=== PATIENT | male | born 1970 | race American Indian/Alaskan Native ===

== ENCOUNTER 2020-09-12 00:32 | Emergency (ER) | payer SELFPAY ==
[2020-09-12 02:00] LABS: Basophils % (Auto) 0.9 % (0.0-1.8); Eosinophils # (Auto) 0.1 K/mm3 (0.0-0.4); Eosinophils % (Auto) 1.5 % (0.0-4.3); Hematocrit 36.8 % (35.5-45.6); Hemoglobin 12.2 gm/dl (11.8-15.2); Lymphocytes # (Auto) 1.6 K/mm3 (1.2-5.4); Lymphocytes % (Auto) 40.8 % (13.4-35.0); Mean Corpuscular HGB Conc 33 % (32-34); Mean Corpuscular Volume 97 fl (84-94); Monocytes # (Auto) 0.5 K/mm3 (0.0-0.8); Monocytes % (Auto) 12.3 % (0.0-7.3); Platelet Count 211 K/mm3 (140-440); Red Blood Count 3.81 M/mm3 (3.65-5.03); Red Cell Distribution Width 15.3 % (13.2-15.2)
[2020-09-12 02:23] LABS: Blood Urea Nitrogen 5 mg/dL (9-20); Calcium 8.9 mg/dL (8.4-10.2); Hemolysis Index 5
[2020-09-12 02:34] LABS: BUN/Creatinine Ratio 10
== END 2020-09-12 01:35 | disposition left against medical advice (07) ==
LOC: ED 00:32
DX: Z53.21 Procedure and treatment not carried out due to patient leaving prior to being seen by health care provider (principal)
CPT/HCPCS: 36415; 80048; 80320; 85025; G0480

== ENCOUNTER 2020-09-12 13:17 | Emergency (ER) | payer SELFPAY ==
[2020-09-12] MEDS ORDERED: HALOPERIDOL LACTATE 5 MG/1 ML INJ IM PRN (13:54)
[2020-09-12] MEDS ORDERED: LORazepam 2 MG/ML VIAL IM PRN (13:54)
[2020-09-12] MEDS ORDERED: LORazepam 2 MG/ML VIAL IV PRN (13:55)
[2020-09-12] MEDS ORDERED: LORazepam 2 MG TAB PO PRN ×2 (13:55)
[2020-09-12] MEDS ORDERED: chlordiazePOXIDE 25 MG CAP PO PRN (13:55)
[2020-09-12] MEDS ORDERED: DEXTROSE 50% IN WATER (25GM) 50 ML VIAL IV PRN (13:56)
--- NOTE | 2020-09-12 14:01 | Emergency Department Report ---
ED Alcohol HPI - General Chief Complaint: Alcohol Stated Complaint: ETOH Time Seen by Provider: 09/12/20 13:36 Source: patient, EMS (Verbal report received from emergency medical services. EMS documentation not available at time of chart dictation ), RN notes reviewed, old records reviewed Mode of arrival: Stretcher Limitations: Altered Mental Status - History of Present Illness Initial Comments: The patient was evaluated in the emergency department for symptoms described in the history of present illness. He/she was evaluated in the context of the global COVID-19 pandemic, which necessitated consideration that the patient might be at risk for infection with the virus that causes COVID-19. Institutional protocols and algorithms that pertain to the evaluation of patients at risk for COVID-19 are in a state of rapid change based on informatio n released by regulatory bodies including the CDC and federal and state organizations. These policies and algorithms were followed during the patient's care in the emergency department. Please note that these policies, procedures and recommendations changed on a rapid basis. Patient is a 50-year-old gentleman. He is not known to myself previously. He is brought to the hospital today by emergency medical services with a reported complaint of alcohol intoxication. History obtained mostly from EMS. Patient was seen in this hospital earlier on today, had laboratory studies drawn which demonstrated alcohol intoxication, however, no medical record was written that I could review. I am not certain if the patient was discharged or eloped. Apparently, as per EMS, patient was [place] in the bathroom [place] a local [place], with a still 1 bottle of wine. There is concern that the patient may have been shooting up recreationally. The patient himself is pleasant and intoxicated. He denies physical pain. He is not sure if he fell. He is not homicidal or suicidal. He is not accompanied by friends or family at this time for additional information/collateral information. MD Complaint: alcohol intoxication Last Drink: unknown Chronic Alcohol Use: Yes Previous Visits for Alcohol Intoxication?: Yes - Related Data Previous Rx's Medication Instructions Recorded Last Taken Type Multivitamin with Folic Acid [[facility] 400 mcg PO QDAY #30 tablet 09/12/20 Unknown Rx One Daily Essential Tablet] chlordiazePOXIDE [Librium] 25 mg PO Q6H PRN #25 capsule 09/12/20 Unknown Rx Allergies Allergy/AdvReac Type Severity Reaction Status Date / Time No Known Allergies Allergy Unverified 10/26/20 01:22 ED Review of Systems ROS: Stated complaint: ETOH Other details as noted in HPI Comment: Unobtainable due to pts medical conditions ED Past Medical Hx - Past Medical History Previous Medical History?: No - Surgical History Past Surgical History?: No - Social History Smoking Status: Current Some Day Smoker Substance Use Type: Alcohol, Marijuana - Medications Home Medications: Home Medications Medication Instructions Recorded Confirmed Last Taken Type Multivitamin with Folic Acid [[facility] 400 mcg PO QDAY #30 tablet 09/12/20 Unknown Rx One Daily Essential Tablet] chlordiazePOXIDE [Librium] 25 mg PO Q6H PRN #25 capsule 09/12/20 Unknown Rx ED Physical Exam - General Limitations: Other (Florid alcohol intoxication) General appearance: in no apparent distress, appears intoxicated - Head Head exam: Present: atraumatic, normocephalic - Eye Eye exam: Present: normal appearance, EOMI. Absent: nystagmus - ENT ENT exam: Present: mucous membranes dry, normal external ear exam, other (Tongue fasciculations not appreciated) - Neck Neck exam: Present: normal inspection, full ROM. Absent: tenderness, meningismus - Respiratory Respiratory exam: Present: normal lung sounds bilaterally. Absent: respiratory distress, wheezes, rales, rhonchi, stridor, decreased breath sounds - Cardiovascular Cardiovascular Exam: Present: regular rate, normal rhythm, normal heart sounds. Absent: bradycardia, tachycardia, irregular rhythm, systolic murmur, diastolic murmur, rubs, gallop - GI/Abdominal GI/Abdominal exam: Present: soft. Absent: distended, tenderness, guarding, rebound, rigid, pulsatile mass - Rectal Rectal exam: Present: deferred - exam: Present: normal inspection, other (Chaperoned by Yue Thomas) External exam: Present: normal external exam - Extremities Exam Extremities exam: Present: normal inspection (Left upper extremity ecchymosis appreciated. There is no tenderness.), full ROM, other (2+ pulses noted in the bilateral upper and lower extremities. There is no palpable cord. negative Homans sign. Muscular compartments are soft. The pelvis is stable.). Absent: tenderness - Back Exam Back exam: Present: normal inspection, full ROM. Absent: tenderness, CVA tenderness (R), CVA tenderness (L), paraspinal tenderness, vertebral tenderness - Neurological Exam Neurological exam: Present: altered, other (No facial droop. Tongue midline. Extraocular movements intact bilaterally. Facial sensation intact to light touch in V1, V2, V3 distribution bilaterally. 5 and a 5 strength in 4 extremit ies. Sensation intact to light touch in 4 extremities.) - Psychiatric Psychiatric exam: Absent: homicidal ideation, suicidal ideation - Skin Skin exam: Present: warm, ecchymosis ED Course Vital Signs 09/12/20 09/12/20 09/12/20 13:39 13:49 14:00 Temperature 98.6 F Pulse Rate 92 H 84 Respiratory 18 9 L 9 L Rate Blood Pressure 132/86 134/94 Blood Pressure [Left] O2 Sat by Pulse 97 Oximetry 09/12/20 09/12/20 09/12/20 14:46 14:49 15:00 Temperature Pulse Rate 82 82 Respiratory 10 L 18 9 L Rate Blood Pressure 113/76 113/76 Blood Pressure [Left] O2 Sat by Pulse 92 94 Oximetry 09/12/20 09/12/20 09/12/20 15:16 15:30 15:46 Temperature Pulse Rate 80 88 82 Respiratory 9 L 10 L 9 L Rate Blood Pressure 106/75 106/75 Blood Pressure [Left] O2 Sat by Pulse 97 89 97 Oximetry 09/12/20 09/12/20 09/12/20 16:00 16:16 16:30 Temperature Pulse Rate 80 90 81 Respiratory 11 L 10 L 14 Rate Blood Pressure 113/83 113/83 115/74 Blood Pressure [Left] O2 Sat by Pulse 98 82 L 100 Oximetry 09/12/20 19:20 Temperature 98.2 F Pulse Rate 80 Respiratory 16 Rate Blood Pressure Blood Pressure 123/78 [Left] O2 Sat by Pulse 99 Oximetry - Reevaluation(s) Reevaluation #1: 09/12/20 14:02 Differential diagnosis, including but not limited to: Alcohol intoxication, intracranial injury, cervical spine injury, electrolyte derangement Assessment and plan: 50-year-old gentleman who is intoxicated. He is afebrile, with reassuring vital signs, speaking in complete sentences, and moving 4 extremities. It is unclear if the patient fell and/or hit his head. The patient has not made any comments about homicidality or suicidality. Place patient on hold status, obtain appropriate laboratory studies, had CBC drawn within the past 24 hours, do not see need for repeat CBC. Obtain a CT scan of the brain, cervical spine. As needed medications ordered. EKG ordered. Anticipate observation in this emergency room pending clinical sobriety. Reevaluation #2: 09/12/20 14:55 CT scan of the brain is negative for acute findings. Reevaluation #3: 09/12/20 15:29 CT scan of the brain and cervical spine negative for acute findings. Patient resting comfortably at this time, and in no acute distress. Laboratory studies pending. Care will be transferred to the oncoming ER physician, Dr. Kayla Crawford to observe patient in the ER until clinically sober, and discharge once clinically sober. ED Medical Decision Making - Lab Data Result diagrams: 09/12/20 14:27 Vital Signs 09/12/20 13:39 Temperature 98.6 F Pulse Rate 92 H Respiratory 18 Rate Blood Pressure 132/86 O2 Sat by Pulse 97 Oximetry - EKG Data -: EKG Interpreted by Vt EKG shows normal: sinus rhythm Rate: normal - EKG Data When compared to previous EKG there are: previous EKG unavailable 09/12/20 14:16 Sinus rhythm, 93 bpm, normal axis, QTC prolonged, 466 ms, left ventricular hypertrophy, minimal motion artifact. No prior for comparison. Not consistent with a STEMI. - Radiology Data Radiology results: pending Critical care attestation.: If time is entered above; I have spent that time in minutes in the direct care of this critically ill patient, excluding procedure time. ED Disposition Clinical Impression: Alcohol intoxication Disposition: DC-01 TO HOME OR SELFCARE Is pt being admited?: No Does the pt Need Aspirin: No Condition: Good Instructions: Alcohol Intoxication (ED), Abuse of Alcohol (ED) Additional Instructions: Minimize/avoid consumption of alcohol consumption. Take the multivitamins on a daily basis. Take the Librium medication as needed for sensation of alcohol withdrawal, tremors, shaking. Follow-up with your primary care doctor, psychiatrist, therapists or detox center within the next 5 to [address] or operate car/motor vehicles until cleared to do so by a primary care doctor. Avoid consumption of tobacco, smoke products. Please return to the emergency room right away with new pain, worsened pain, tameka ration of pain, projectile vomiting, change in mental status, confusion, inability to tolerate liquid feeds, new, worsened or different symptoms not present on the initial emergency room evaluation. Prescriptions: Multivitamin with Folic Acid [[facility]vs One Daily Essential Tablet] 400 mcg PO QDAY #30 tablet chlordiazePOXIDE [Librium] 25 mg PO Q6H PRN #25 capsule PRN Reason: Alcohol Withdrawal Referrals: [facility] [Provider Group] - 3-5 Days [facility] [Provider Group] - 3-5 Days
--- NOTE | 2020-09-12 14:52 | Cat Scan Report ---
CT HEAD WITHOUT CONTRAST INDICATION / CLINICAL INFORMATION: etoh abuse, intox, closed head injujry. TECHNIQUE: Axial imaging performed from the skull apex through the skull base without the use of cont rast. Sagittal and coronal reformatted images. All CT scans at this location are performed using CT dose reduction for ALARA by means of automated exposure control. COMPARISON: None available. FINDINGS: CEREBRAL PARENCHYMA: No significant abnormality. No acute territorial infarct. HEMORRHAGE: None. EXTRA-AXIAL SPACES: Normal in size and morphology for the patient's age. VENTRICULAR SYSTEM: Normal in size and morphology for the patient's age. MIDLINE SHIFT OR HERNIATION: None. CEREBELLUM / BRAINSTEM: No significant abnormality. CALVARIUM: No significant abnormality. ORBITS: Normal as visualized. PARANASAL SINUSES / MASTOID AIR CELLS: Normal as visualized. SOFT TISSUES of HEAD: No significant abnormality. ADDITIONAL FINDINGS: None. IMPRESSION: No acute intracranial abnormality. Signer Name: Gatito Le Jr, MD Signed: 09/12/2020 2:47 PM Workstation Name: [id number]
--- NOTE | 2020-09-12 15:00 | Cat Scan Report ---
CT CERVICAL SPINE WITHOUT CONTRAST INDICATION: Alcohol abuse, intoxicated, closed head injury. TECHNIQUE: Axial imaging performed through the cervical spine without the use of contrast. Sagittal and coronal reconstructed images were also reviewed. All CT scans at this location are performed us ing CT dose reduction for ALARA by means of automated exposure control. COMPARISON: None FINDINGS: Alignment: Spinal alignment is normal. Bones: There is no acute osseous abnormality. No significant degenerative changes are appreciated. No suspicious bony lesion. Soft tissues: No acute or significant incidental soft tissue abnormality. Additional findings: Chronic appearing deformity of the medial left clavicle is partially imaged. IMPRESSION: No acute abnormality. Signer Name: Gatito Le Jr, MD Signed: 09/12/2020 2:55 PM Workstation Name: [id number]
[2020-09-12 15:16] LABS: Blood Urea Nitrogen 7 mg/dL (9-20); Calcium 8.8 mg/dL (8.4-10.2); Hemolysis Index 13
[2020-09-12 15:31] LABS: BUN/Creatinine Ratio 12
[2020-09-12 22:00] VITALS: BP 123/78
[2020-09-13] MEDS ORDERED: ACETAMINOPHEN 325 MG TAB ONE ×2 (02:30→02:38)
[2020-09-13] MEDS ORDERED: MULTIVITAMINS ,THERAPEUTIC TAB PO SCH (10:00)
[2020-09-13] MEDS ORDERED: THIAMINE 100 MG TAB PO SCH (10:00)
== END 2020-09-13 15:30 | disposition home or self-care (01) ==
LOC: ED 13:17
DX: F10.129 Alcohol abuse with intoxication, unspecified (principal); F17.200 Nicotine dependence, unspecified, uncomplicated; F12.10 Cannabis abuse, uncomplicated; Z79.899 Other long term (current) drug therapy
CPT/HCPCS: 36415; 70450; 72125; 80048; 80320; 82550; 83735; 93005; G0480

== ENCOUNTER 2020-09-14 12:11 | Emergency (ER) | payer SELFPAY ==
--- NOTE | 2020-09-14 12:38 | Emergency Department Report ---
ED Alcohol HPI - General Chief Complaint: Alcohol Stated Complaint: ETOH Time Seen by Provider: 09/14/20 12:21 Source: EMS Mode of arrival: Stretcher Limitations: No Limitations - History of Present Illness Initial Comments: 50-year-old alcoholic presents to the hospital after being found sleeping on the side of the road by the police with no physical complaints. Patient is homeless. Drinks alcohol daily denies other medical. He was seen here twice on Sep 12 with alcohol intoxication and received a CT head and cervical spine at that time. He presented with alcohol level of 0.4. He has a history of alcohol withdrawal tremors - Related Data Previous Rx's Medication Instructions Recorded Last Taken Type Multivitamin with Folic Acid [[facility]vs 400 mcg PO QDAY #30 tablet 09/12/20 Unknown Rx One Daily Essential Tablet] chlordiazePOXIDE [Librium] 25 mg PO Q6H PRN #25 capsule 09/12/20 Unknown Rx Allergies Allergy/AdvReac Type Severity Reaction Status Date / Time No Known Allergies Allergy Unverified 09/12/20 01:22 ED Review of Systems ROS: Stated complaint: ETOH Other details as noted in HPI Comment: All other systems reviewed and negative ED Past Medical Hx - Past Medical History Previous Medical History?: Yes Additional medical history: Hypotension - Social History Smoking Status: Never Smoker Substance Use Type: Alcohol - Medications Home Medications: Home Medications Medication Instructions Recorded Confirmed Last Taken Type Multivitamin with Folic Acid [[facility]vs 400 mcg PO QDAY #30 tablet 09/12/20 Unknown Rx One Daily Essential Tablet] chlordiazePOXIDE [Librium] 25 mg PO Q6H PRN #25 capsule 09/12/20 Unknown Rx ED Physical Exam - General Limitations: No Limitations - Other Other exam information: General: No acute distress, acute alcohol intoxication Head: Atraumatic, no signs of trauma or hematoma, no scalp tenderness Eyes: normal appearance ENT: Moist mucous membranes Neck: Normal appearance, no midline tenderness Chest: Clear to auscultation bilaterally CV: Regular rate and rhythm Abdomen: Soft, normal bowel sounds, nontender, nondistended, no rebound or guarding Back: Normal inspection Extremity: Normal inspection, full range of motion Neuro: Mild slurred speech O x 3, no facial asymmetry, speech clear, no gross motor sensory deficit Psych: Appropriate behavior Skin: No rash ED Course Vital Signs 09/14/20 09/14/20 09/14/20 12:17 13:00 13:16 Temperature 97.9 F Pulse Rate 96 H 101 H 89 Respiratory 18 11 L 13 Rate Blood Pressure 136/88 128/101 128/101 Blood Pressure 136/88 [Left] O2 Sat by Pulse 97 96 97 Oximetry 09/14/20 09/14/20 09/14/20 13:21 13:30 13:46 Temperature Pulse Rate 87 86 Respiratory 18 9 L 10 L Rate Blood Pressure 128/101 128/101 Blood Pressure [Left] O2 Sat by Pulse 97 94 93 Oximetry 09/14/20 09/14/20 09/14/20 14:00 14:16 14:30 Temperature Pulse Rate 86 87 95 H Respiratory 10 L 9 L 10 L Rate Blood Pressure 92/55 92/55 92/55 Blood Pressure [Left] O2 Sat by Pulse 95 95 99 Oximetry 09/14/20 09/14/20 09/14/20 14:46 15:00 15:16 Temperature Pulse Rate 87 94 H 87 Respiratory 9 L 8 L 11 L Rate Blood Pressure 92/55 124/76 124/76 Blood Pressure [Left] O2 Sat by Pulse 98 88 98 Oximetry 09/14/20 09/14/20 09/14/20 15:30 15:46 16:00 Temperature Pulse Rate 88 85 84 Respiratory 11 L 9 L 9 L Rate Blood Pressure 124/76 124/76 115/73 Blood Pressure [Left] O2 Sat by Pulse 82 L 98 98 Oximetry 09/14/20 09/14/20 09/14/20 16:16 16:30 16:46 Temperature Pulse Rate 88 112 H 95 H Respiratory 10 L 12 8 L Rate Blood Pressure 115/73 115/73 115/73 Blood Pressure [Left] O2 Sat by Pulse 96 97 97 Oximetry 09/14/20 09/14/20 09/14/20 17:00 17:16 17:30 Temperature Pulse Rate 85 87 88 Respiratory 10 L 10 L 10 L Rate Blood Pressure 126/73 126/73 126/73 Blood Pressure [Left] O2 Sat by Pulse 96 99 98 Oximetry 09/14/20 09/14/20 09/14/20 17:46 18:00 18:16 Temperature Pulse Rate 92 H 91 H 90 Respiratory 11 L 11 L 11 L Rate Blood Pressure 126/73 126/73 126/73 Blood Pressure [Left] O2 Sat by Pulse 84 95 98 Oximetry 09/14/20 09/14/20 19:00 19:30 Temperature Pulse Rate 95 H 98 H Respiratory 9 L 12 Rate Blood Pressure 127/73 Blood Pressure 127/73 [Left] O2 Sat by Pulse 98 97 Oximetry ED Medical Decision Making - Lab Data Result diagrams: 09/14/20 13:02 09/14/20 13:02 Lab Results 09/14/20 09/14/20 09/14/20 Range/Units 13:02 13:02 13:02 WBC 3.9 L (4.5-11.0) K/mm3 RBC 3.94 (3.65-5.03) M/mm3 Hgb 12.9 (11.8-15.2) gm/dl Hct 37.5 (35.5-45.6) % MCV 95 H (84-94) fl MCH 33 H (28-32) pg MCHC 34 (32-34) % RDW 15.2 (13.2-15.2) % Plt Count 292 (140-440) K/mm3 Lymph % (Auto) 44.8 H (13.4-35.0) % Holmes % (Auto) 14.5 H (0.0-7.3) % Eos % (Auto) 0.5 (0.0-4.3) % Baso % (Auto) 1.2 (0.0-1.8) % Lymph # (Auto) 1.8 (1.2-5.4) K/mm3 Holmes # (Auto) 0.6 (0.0-0.8) K/mm3 Eos # (Auto) 0.0 (0.0-0.4) K/mm3 Baso # (Auto) 0.0 (0.0-0.1) K/mm3 Seg Neutrophils % 39.0 L (40.0-70.0) % Seg Neutrophils # 1.5 L (1.8-7.7) K/mm3 Sodium 145 (137-145) mmol/L Potassium 4.0 (3.6-5.0) mmol/L Chloride 103.2 (98-107) mmol/L Carbon Dioxide 25 (22-30) mmol/L Anion Gap 21 mmol/L BUN 6 L (9-20) mg/dL Creatinine 0.5 L (0.8-1.3) mg/dL Estimated GFR > 60 ml/min BUN/Creatinine Ratio 12 % Glucose 84 (75-100) mg/dL Calcium 8.6 (8.4-10.2) mg/dL Magnesium 2.50 H (1.7-2.3) mg/dL Total Bilirubin 0.40 (0.1-1.2) mg/dL AST 71 H (5-40) units/L ALT 41 (7-56) units/L Alkaline Phosphatase 102 (35-129) units/L Total Protein 7.0 (6.3-8.2) g/dL Albumin 4.1 (3.9-5) g/dL Albumin/Globulin Ratio 1.4 % Urine Color (Yellow) Urine Turbidity (Clear) Urine pH (5.0-7.0) Ur Specific [place] (1.003-1.030) Urine Protein (Negative) mg/dL Urine Glucose (UA) (Negative) mg/dL Urine Ketones (Negative) mg/dL Urine Blood (Negative) Urine Nitrite (Negative) Urine Bilirubin (Negative) Urine Urobilinogen (<2.0) mg/dL Ur Leukocyte Esterase (Negative) Urine WBC (Auto) (0.0-6.0) /HPF Urine RBC (Auto) (0.0-6.0) /HPF Urine Bacteria (Auto) (Negative) /HPF Urine Opiates Screen Urine Methadone Screen Ur Barbiturates Screen Ur Phencyclidine Scrn Ur Amphetamines Screen U Benzodiazepines Scrn Urine Cocaine Screen U Marijuana (THC) Screen Drugs of Abuse Note Plasma/Serum Alcohol 0.45 H (0-0.07) % 09/14/20 09/14/20 Range/Units 13:21 13:21 WBC (4.5-11.0) K/mm3 RBC (3.65-5.03) M/mm3 Hgb (11.8-15.2) gm/dl Hct (35.5-45.6) % MCV (84-94) fl MCH (28-32) pg MCHC (32-34) % RDW (13.2-15.2) % Plt Count (140-440) K/mm3 Lymph % (Auto) (13.4-35.0) % Holmes % (Auto) (0.0-7.3) % Eos % (Auto) (0.0-4.3) % Baso % (Auto) (0.0-1.8) % Lymph # (Auto) (1.2-5.4) K/mm3 Holmes # (Auto) (0.0-0.8) K/mm3 Eos # (Auto) (0.0-0.4) K/mm3 Baso # (Auto) (0.0-0.1) K/mm3 Seg Neutrophils % (40.0-70.0) % Seg Neutrophils # (1.8-7.7) K/mm3 Sodium (137-145) mmol/L Potassium (3.6-5.0) mmol/L Chloride (98-107) mmol/L Carbon Dioxide (22-30) mmol/L Anion Gap mmol/L BUN (9-20) mg/dL Creatinine (0.8-1.3) mg/dL Estimated GFR ml/min BUN/Creatinine Ratio % Glucose (75-100) mg/dL Calcium (8.4-10.2) mg/dL Magnesium (1.7-2.3) mg/dL Total Bilirubin (0.1-1.2) mg/dL AST (5-40) units/L ALT (7-56) units/L Alkaline Phosphatase (35-129) units/L Total Protein (6.3-8.2) g/dL Albumin (3.9-5) g/dL Albumin/Globulin Ratio % Urine Color Straw (Yellow) Urine Turbidity Clear (Clear) Urine pH 7.0 (5.0-7.0) Ur Specific [place] 1.004 (1.003-1.030) Urine Protein <15 mg/dl (Negative) mg/dL Urine Glucose (UA) Neg (Negative) mg/dL Urine Ketones Neg (Negative) mg/dL Urine Blood Neg (Negative) Urine Nitrite Neg (Negative) Urine Bilirubin Neg (Negative) Urine Urobilinogen < 2.0 (<2.0) mg/dL Ur Leukocyte Esterase Neg (Negative) Urine WBC (Auto) < 1.0 (0.0-6.0) /HPF Urine RBC (Auto) < 1.0 (0.0-6.0) /HPF Urine Bacteria (Auto) 1+ (Negative) /HPF Urine Opiates Screen Negative Urine Methadone Screen Negative Ur Barbiturates Screen Negative Ur Phencyclidine Scrn Negative Ur Amphetamines Screen Negative U Benzodiazepines Scrn Negative Urine Cocaine Screen Negative U Marijuana (THC) Screen Negative Drugs of Abuse Note Disclamer Plasma/Serum Alcohol (0-0.07) % - Medical Decision Making Patient is a chronic alcoholic who is homeless with frequent ER visits. He has a significant alcohol dependence and at risk for withdrawals if he becomes clinically sober. He has been prescribed Librium recently but it does not appear that he intends to stop drinking. In the ED at time of discharge his gait is steady, his speech is more clear, he is alert and oriented x3, and denies any physical complaints and is eaten several meals while he was here. He will be discharged from the ED at this time Critical Care Time: No Critical care attestation.: If time is entered above; I have spent that time in minutes in the direct care of this critically ill patient, excluding procedure time. ED Disposition Clinical Impression: Alcohol intoxication Disposition: DC-01 TO HOME OR SELFCARE Is pt being admited?: No Does the pt Need Aspirin: No Condition: Stable Instructions: Alcohol Intoxication (ED) Additional Instructions: Take the medication as prescribed. Follow-up with your doctor or doctor/clinic provided. Return if symptoms worsen as indicated by your discharge instructions. Referrals: [facility] [Outside] - 3-5 Days [facility] [Provider Group] - 3-5 Days Time of Disposition: 20:08
[2020-09-14 13:50] LABS: Basophils % (Auto) 1.2 % (0.0-1.8); Eosinophils % (Auto) 0.5 % (0.0-4.3); Hematocrit 37.5 % (35.5-45.6); Hemoglobin 12.9 gm/dl (11.8-15.2); Lymphocytes # (Auto) 1.8 K/mm3 (1.2-5.4); Lymphocytes % (Auto) 44.8 % (13.4-35.0); Mean Corpuscular HGB Conc 34 % (32-34); Mean Corpuscular Volume 95 fl (84-94); Monocytes # (Auto) 0.6 K/mm3 (0.0-0.8); Monocytes % (Auto) 14.5 % (0.0-7.3); Platelet Count 292 K/mm3 (140-440); Red Blood Count 3.94 M/mm3 (3.65-5.03); Red Cell Distribution Width 15.2 % (13.2-15.2)
[2020-09-14 14:14] LABS: Alanine Aminotransferase 41 units/L (7-56); Albumin 4.1 g/dL (3.9-5); Blood Urea Nitrogen 6 mg/dL (9-20); Calcium 8.6 mg/dL (8.4-10.2); Hemolysis Index 5
[2020-09-14 14:25] LABS: Amphetamine Screen,Urine Negative; Benzodiazepines Screen,Urine Negative; Cannabinoid Screen,Urine Negative; Cocaine Screen,Urine Negative; Methadone Screen,Urine Negative; Opiate Screen,Urine Negative
[2020-09-14 14:33] LABS: Bacteria,Urine 1+ /HPF (Negative); Bilirubin,Urine NEG (Negative); Blood,Urine NEG (Negative); Color,Urine Straw (Yellow); Protein,Urine <15 mg/dL mg/dL (Negative); RBC,Urine < 1.0 /HPF (0.0-6.0); Urobilinogen,Urine < 2.0 mg/dL (<2.0)
[2020-09-14 14:34] LABS: BUN/Creatinine Ratio 12
[2020-09-14 14:48] LABS: WBC,Urine < 1.0 /HPF (0.0-6.0)
[2020-09-14 19:12] VITALS: BP 127/73
== END 2020-09-14 20:20 | disposition home or self-care (01) ==
LOC: ED 12:11
DX: F10.929 Alcohol use, unspecified with intoxication, unspecified (principal); Z79.899 Other long term (current) drug therapy
CPT/HCPCS: 36415; 80053; 80307; 80320; 81001; 83735; 85025; G0480

== ENCOUNTER 2020-09-16 01:34 | Emergency (ER) | payer SELFPAY ==
[2020-09-16 02:32] LABS: Basophils # (Auto) 0.1 K/mm3 (0.0-0.1); Basophils % (Auto) 1.4 % (0.0-1.8); Eosinophils % (Auto) 0.5 % (0.0-4.3); Hematocrit 38.6 % (35.5-45.6); Hemoglobin 12.8 gm/dl (11.8-15.2); Lymphocytes # (Auto) 1.4 K/mm3 (1.2-5.4); Lymphocytes % (Auto) 25.3 % (13.4-35.0); Mean Corpuscular HGB Conc 33 % (32-34); Mean Corpuscular Volume 97 fl (84-94); Monocytes # (Auto) 0.5 K/mm3 (0.0-0.8); Monocytes % (Auto) 8.8 % (0.0-7.3); Platelet Count 296 K/mm3 (140-440); Red Blood Count 3.98 M/mm3 (3.65-5.03); Red Cell Distribution Width 15.2 % (13.2-15.2)
[2020-09-16 02:51] LABS: BUN/Creatinine Ratio 14; Blood Urea Nitrogen 7 mg/dL (9-20); Calcium 8.4 mg/dL (8.4-10.2); Hemolysis Index 9
--- NOTE | 2020-09-16 07:50 | Emergency Department Report ---
HPI - General Chief Complaint: Alcohol Time Seen by Provider: 09/16/20 07:23 - HPI HPI: This is a 50-year-old male who presents to the emergency department with the complaint of alcohol consumption after the patient was found drinking and staggering around a gas station, and the federal judicial law clerk called for EMS. Patient does have a history of alcohol abuse "when I am not working" and the patient says that he was laid off. When EMS arrived the patient says that he had been drinking since the morning. This is the third visit this week for this patient and each time it has been for alcohol abuse. Patient lives with his brother and [id number]. He denies any fever, headache, chest pain, shortness of breath, nausea, vomiting. ED Past Medical Hx - Past Medical History Previous Medical History?: Yes Additional medical history: Hypotension. Alcoholism - Surgical History Past Surgical History?: No - Social History Smoking Status: Current Every Day Smoker Substance Use Type: Alcohol - Medications Home Medications: Home Medications Medication Instructions Recorded Confirmed Last Taken Type Multivitamin with Folic Acid [[facility] 400 mcg PO QDAY #30 tablet 09/12/20 Unknown Rx One Daily Essential Tablet] chlordiazePOXIDE [Librium] 25 mg PO Q6H PRN #25 capsule 09/12/20 Unknown Rx ED Review of Systems ROS: Stated complaint: ETOH/SYNCOPY Other details as noted in HPI Comment: All other systems reviewed and negative Constitutional: denies: chills, fever Eyes: denies: eye pain, vision change ENT: denies: ear pain, throat pain Respiratory: denies: cough, shortness of breath Cardiovascular: denies: chest pain, palpitations Gastrointestinal: denies: abdominal pain, vomiting Genitourinary: denies: dysuria, discharge Musculoskeletal: denies: back pain, arthralgia Skin: denies: rash, lesions Neurological: denies: headache, weakness Physical Exam - Physical Exam Vital Signs: Vital Signs 09/16/20 01:40 Temperature 98.4 F Pulse Rate 101 H Respiratory 20 Rate Blood Pressure 111/86 O2 Sat by Pulse 97 Oximetry Physical Exam: GENERAL: The patient is well-developed well-nourished. HENT: Normocephalic. Atraumatic. Patient has moist mucous membranes. EYES: Extraocular motions are intact. NECK: Supple. Trachea is midline. CHEST/LUNGS: Clear to auscultation. There is no respiratory distress noted. HEART/CARDIOVASCULAR: Regular. There is no tachycardia. There is no murmur. ABDOMEN: Abdomen is soft, nontender. Patient has normal bowel sounds. SKIN: Skin is warm and dry. NEURO: The patient is awake, alert, but does appear intoxicated. The patient is cooperative. The patient has no focal neurologic deficits. Cranial nerves II through XII grossly intact. MUSCULOSKELETAL: There is no tenderness or deformity. There is no limitation range of motion. ED Course Vital Signs 09/16/20 01:40 Temperature 98.4 F Pulse Rate 101 H Respiratory 20 Rate Blood Pressure 111/86 O2 Sat by Pulse 97 Oximetry - Reevaluation(s) Reevaluation #1: 09/17/20 06:16 Lab Results 09/16/20 09/16/20 09/16/20 Range/Units 01:54 01:54 01:54 WBC 5.7 (4.5-11.0) K/mm3 RBC 3.98 (3.65-5.03) M/mm3 Hgb 12.8 (11.8-15.2) gm/dl Hct 38.6 (35.5-45.6) % MCV 97 H (84-94) fl MCH 32 (28-32) pg MCHC 33 (32-34) % RDW 15.2 (13.2-15.2) % Plt Count 296 (140-440) K/mm3 Lymph % (Auto) 25.3 (13.4-35.0) % [place] % (Auto) 8.8 H (0.0-7.3) % Eos % (Auto) 0.5 (0.0-4.3) % Baso % (Auto) 1.4 (0.0-1.8) % Lymph # (Auto) 1.4 (1.2-5.4) K/mm3 [place] # (Auto) 0.5 (0.0-0.8) K/mm3 Eos # (Auto) 0.0 (0.0-0.4) K/mm3 Baso # (Auto) 0.1 (0.0-0.1) K/mm3 Seg Neutrophils % 64.0 (40.0-70.0) % Seg Neutrophils # 3.6 (1.8-7.7) K/mm3 Sodium 144 (137-145) mmol/L Potassium 3.8 (3.6-5.0) mmol/L Chloride 104.0 (98-107) mmol/L Carbon Dioxide 25 (22-30) mmol/L Anion Gap 19 mmol/L BUN 7 L (9-20) mg/dL Creatinine 0.5 L (0.8-1.3) mg/dL Estimated GFR > 60 ml/min BUN/Creatinine Ratio 14 % Glucose 95 (75-100) mg/dL Calcium 8.4 (8.4-10.2) mg/dL Plasma/Serum Alcohol 0.40 H (0-0.07) % 09/16/20 Range/Units 07:40 WBC (4.5-11.0) K/mm3 RBC (3.65-5.03) M/mm3 Hgb (11.8-15.2) gm/dl Hct (35.5-45.6) % MCV (84-94) fl MCH (28-32) pg MCHC (32-34) % RDW (13.2-15.2) % Plt Count (140-440) K/mm3 Lymph % (Auto) (13.4-35.0) % [place] % (Auto) (0.0-7.3) % Eos % (Auto) (0.0-4.3) % Baso % (Auto) (0.0-1.8) % Lymph # (Auto) (1.2-5.4) K/mm3 [place] # (Auto) (0.0-0.8) K/mm3 Eos # (Auto) (0.0-0.4) K/mm3 Baso # (Auto) (0.0-0.1) K/mm3 Seg Neutrophils % (40.0-70.0) % Seg Neutrophils # (1.8-7.7) K/mm3 Sodium (137-145) mmol/L Potassium (3.6-5.0) mmol/L Chloride (98-107) mmol/L Carbon Dioxide (22-30) mmol/L Anion Gap mmol/L BUN (9-20) mg/dL Creatinine (0.8-1.3) mg/dL Estimated GFR ml/min BUN/Creatinine Ratio % Glucose (75-100) mg/dL Calcium (8.4-10.2) mg/dL Plasma/Serum Alcohol 0.31 H (0-0.07) % ED Medical Decision Making - Lab Data Result diagrams: 09/16/20 01:54 09/16/20 01:54 - Medical Decision Making This patient presented with alcohol intoxication/abuse. The patient was there from overnight before my 6 AM shift started. Since my initial examination, the patient has been awake and oriented but does appear intoxicated. On examination he does not have any focal, motor or sensory deficits and his cranial nerves are intact. His initial blood alcohol level was 0.4. I rechecked it and it was down to 0.31. Patient's labs were otherwise mostly unremarkable. Vital signs reassuring throughout his ED course. He was given some IV fluid resuscitation with a banana bag. Around 2 PM, the patient eloped from the emergency department. He was nowhere to be found in the emergency department. [facility] and [facility] were notified, but the patient did not return and was not brought back. Critical Care Time: No Critical care attestation.: If time is entered above; I have spent that time in minutes in the direct care of this critically ill patient, excluding procedure time. ED Disposition Clinical Impression: Alcohol intoxication Qualifiers: Complication of substance-induced condition: uncomplicated Qualified Code(s): F10.920 - Alcohol use, unspecified with intoxication, uncomplicated Disposition: 07 ELOPED Is pt being admited?: No Condition: Stable Referrals: PRIMARY CARE, [Primary Care Provider] - 3-5 Days
[2020-09-16] MEDS ORDERED: THIAMINE 100 MG, FOLIC ACID 1 MG, MULTIPLE VITAMIN INJ, ADULT 10 ML in SODIUM CHLORIDE ... IV ONE (08:00)
[2020-09-16 10:44] VITALS: BP 136/85
[2020-09-16] MEDS ORDERED: SODIUM CHLORIDE 0.9% 1000 ML 1,000 ML IV ONE (11:26)
== END 2020-09-16 14:00 | disposition left against medical advice (07) ==
LOC: ED 01:34
DX: F10.920 Alcohol use, unspecified with intoxication, uncomplicated (principal); F17.200 Nicotine dependence, unspecified, uncomplicated; Z79.899 Other long term (current) drug therapy
CPT/HCPCS: 36415; 80048; 85025; 96365; 96366; 99283; J3411; J7030; 80320; G0480